=== PATIENT | male | born 1990 | race Caucasian/White ===

== ENCOUNTER 2017-03-04 22:55 | Inpatient (IN) ==
[2017-03-05 00:35] LABS: BASO% 0.1 % (0.0-0.8); EOS# 0.07 X1000 (0.0-0.7); EOS% 0.6 % (0.0-10.0); HEMATOCRIT 44.4 % (42.0-52.0); HEMOGLOBIN 15.3 g/dL (14.0-18.0); IMM GRAN# 0.04 X1000 (0.0-0.04); IMM GRAN% 0.3 % (0.0-0.5); LYMPH# 0.41 X1000 (1.2-3.4); LYMPH% 3.4 % (20.5-51.1); MANUAL DIFF NEEDED? NO; MCH 29.3 PG (27-31); MCHC 34.5 g/dL (33-37); MCV 84.9 FL (81-99); MONO# 0.55 X1000 (0.11-0.59); MONO% 4.6 % (1.7-9.3); MPV 12.1 FL (7.4-10.4); PLT 175 X1000 (130-400); RBC 5.23 XMIL (4.7-6.1)
[2017-03-05 00:46] LABS: URINE MICRO REVIEW NEEDED? NO; URINE SOURCE CLEAN CATCH
[2017-03-05 00:51] LABS: UR EPITHELIAL CELLS <10 /HPF (<10); URINE BACTERIA NEGATIVE /HPF; URINE RBC <10 /HPF (<10)
[2017-03-05 00:55] LABS: AGAP 16; ALBUMIN 4.5 g/dL (3.5-5.0); ALKALINE PHOSPHATASE 90 U/L (32-122); AMYLASE 58 U/L (20-200); BUN 15 mg/dL (8-22); CHLORIDE 99 mmol/L (98-107); COSMO 275; GOT 17 U/L (10-34); GPT 11 U/L (10-44); LIPASE 26 U/L (13-60); POTASSIUM 3.9 mmol/L (3.5-5.1); SODIUM 137 mmol/L (136-145); TCO2 22 mmol/L (25-35); TOTAL PROTEIN 7.3 g/dL (6.3-8.3)
[2017-03-05 01:00] LABS: BILIRUBIN URINE SMALL (NEGATIVE); BLOOD URINE NEGATIVE (NEGATIVE); COLOR YELLOW; GLUCOSE URINE NEGATIVE (NEGATIVE); LEUKOCYTES URINE SMALL (NEGATIVE); NITRITE URINE NEGATIVE (NEGATIVE); PH URINE 5.5; PROTEIN URINE 30 mg/dL (NEGATIVE); SP GRAVITY URINE 1.035; TURBIDITY URINE CLEAR (CLEAR); URINE CULTURE NEEDED? YES; UROBILINOGEN URINE NORMAL (NORMAL)
[2017-03-05] MEDS ORDERED: NS 2,000 ML IV ONE (01:06)
[2017-03-05] MEDS ORDERED: DILAUDID IV ONE (01:07)
[2017-03-05] MEDS ORDERED: ZOFRAN IV ONE (01:08)
--- NOTE | 2017-03-05 01:19 | PROVIDER DOCUMENTATION ---
This chart was entered by Marc Short Scribe, acting as scribe for Navdeep Clements MD. HPI-Abdominal Pain/GI Problem - General Chief Complaint: Abdominal Pain Stated Complaint: ABD PAIN, N/V/D Time Seen by Provider: 03/05/17 01:05 Source: patient Allergies/Adverse Reactions: Patient Allergies Allergy/AdvReac Type Severity Reaction Status Date / Time No Known Allergies Allergy Verified 03/05/17 00:38 Home Medications: Home Medication List Medication Instructions Recorded Confirmed Last Taken Type NK [No Home Medications] 03/05/17 03/05/17 Unknown History - History of Present Illness-ABD Nature of Presenting Problems: Pt is a 26 yowm who presents to ER with CC of RLQ pain with N/V/D. Pt reports that his pain started between [id number]. Pt states that he fell asleep and woke up at 1800 with sudden onset of vomiting and diarrhea. Pt reports that during this episode, he had to shower himself off due to feces falling on his lower extremities. Pt denies any hx of appendectomy and denies any illicit drug use. Pt also reports chills. 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 Abdominal Pain Onset Location: reports: RLQ Pain Radiation: reports: no radiation Quality of Pain: reports: aching, cramping Severity in ED: reports: moderate, severe Onset/Duration: reports: this evening (1500) Timing: reports: still present Associated Symptoms: reports: diarrhea, fever/chills (chills without fever), loss of appetite, nausea, vomiting, weakness. denies: chest pain, constipation , cough, diaphoresis, genitourinary problems, headaches, heartburn, muscle aches , shortness of breath, trouble walking Last BM: this evening Dark Stools Present?: reports: none noticed Rectal Bleeding: reports: none Rectal Pain: reports: none Emesis Description: reports: other (gastric juices) Review of Systems - Adult - REVIEW OF SYSTEMS - ADULT Constitutional: reports: chills, fatique. denies: fever, night sweats, weight gain, weight loss Eyes: reports: no symptoms reported Ears, Nose, Mouth & Throat: reports: no symptoms reported Cardiovascular: reports: no symptoms reported Respiratory: reports: no symptoms reported Gastrointestinal: reports: abdominal pain, diarrhea, nausea, poor appetite, vomiting. denies: hematemesis, constipation, difficulty swallowing, frequent heartburn, rectal bleeding Genitourinary: reports: no symptoms reported Musculoskeletal: reports: no symptoms reported Integumentary: reports: no symptoms reported Neurological: reports: no symptoms reported Psychiatric: reports: no symptoms reported Endocrine: reports: no symptoms reported Hematologic/Lymphatic: reports: no symptoms reported Allergic/Immunologic: reports: no symptoms reported All Other Systems: Reviewed and Negative Past History - Adult - PAST MEDICAL HISTORY-ADULT Review of Records: reports: Nursing Assessment Review, Medications Reviewed - IMMUNIZATION STATUS Childhood Immunizations: See Nurse Assessment Flu Vaccine: See Nurse Assessment Physical Exam-General - PHYSICAL EXAM-ADULT Initial Vital Signs Reviewed: Yes - CONSTITUTIONAL General Appearance: appears well, alert, mild distress, other (ill-appearance/ drowsy) - EYES Eyes: PERRL/EOMI, pink conjunctivae - RESPIRATORY Respiratory: chest non-tender, lungs clear, normal breath sounds, no pleuratic chest pain, no respiratory distress, no accessory muscle use. negative: respiratory distress, decreased breath sounds, accessory muscle use, wheezing - CARDIOVASCULAR Cardiovascular: normal peripheral pulses, regular rate, rhythm. negative: bradycardia, tachycardia, irregularly irregular - GASTROINTESTINAL (ABDOMEN) Abdominal Exam: normal bowel sounds, soft, no organomegaly, no pulsatile mass, tenderness (RLQ). negative: non tender, guarding, rebound, McBurney's point tenderness - MUSCULOSKELETAL Extremity: normal range of motion, non-tender, normal gait, normal inspection, no pedal edema, no calf tenderness, normal capillary refill, pelvis stable. negative: deformity, erythema, swelling, tenderness - SKIN Integumentary: normal color, normal turgor, warm/dry. negative: abrasion(s), diaphoresis, ecchymosis, erythema - PSYCHIATRIC Psych/Mental Status: normal thought content, normal thought process, oriented x 3, depressed affect. negative: normal mood/affect Progress - PLAN OF CARE/RESULTS Progress/Plan/Lab Results: Vital Signs - 8 hr 03/04/17 23:18 Temperature 99.2 F Pulse Rate 108 H Respiratory Rate 20 Blood Pressure 113/57 O2 Sat by Pulse Oximetry 98 Laboratory Results - last 24 hr 03/05/17 03/05/17 03/05/17 00:05 00:05 00:40 WBC 11.94 H RBC 5.23 Hgb 15.3 Hct 44.4 MCV 84.9 MCH 29.3 MCHC 34.5 RDW Std Deviation 12.6 Plt Count 175 MPV 12.1 H Immature Gran % (Auto) 0.3 Neut % (Auto) 91.0 H Lymph % (Auto) 3.4 L [place] % (Auto) 4.6 Eos % (Auto) 0.6 Baso % (Auto) 0.1 Immature Gran # (Auto) 0.04 Neut # (Auto) 10.86 H Lymph # (Auto) 0.41 L [place] # (Auto) 0.55 Eos # (Auto) 0.07 Baso # (Auto) 0.01 Sodium 137 Potassium 3.9 Chloride 99 Carbon Dioxide 22 L Anion Gap 16 BUN 15 Creatinine 0.8 Estimated GFR/1.73 m2 > 60 BUN/Creatinine Ratio 19 Glucose 109 H Calculated Osmolality 275 Calcium 9.0 Total Bilirubin 0.70 AST 17 ALT 11 Alkaline Phosphatase 90 Total Protein 7.3 Albumin 4.5 Globulin 2.8 Albumin/Globulin Ratio 1.6 Amylase 58 Lipase 26 Urine Source CLEAN CATCH Urine Color YELLOW Urine Turbidity CLEAR Urine pH 5.5 Ur Specific [place] 1.035 Urine Protein 30 A Ur Glucose (Stick) NEGATIVE Ur Ketones (Stick) 100 A Urine Blood NEGATIVE Urine Nitrite NEGATIVE Urine Bilirubin SMALL A Urobilinogen Dipstick NORMAL Urine Leukocytes SMALL A Urine WBC (Auto) 10-20 A Urine RBC (Auto) <10 U Epithel Cells (Auto) <10 Urine Bacteria (Auto) NEGATIVE Orders Category Date Time Status Saline Loc DIRECTED Care 03/04/17 23:21 Active NPO Diet 03/04/17 23:21 Active AMYLASE [CHEM] Stat Lab 03/05/17 00:05 Completed CBC WITH ELECTRONIC DIFF [HEME] Stat Lab 03/05/17 00:05 Completed COMPREHENSIVE METABOLIC PANEL [CHEM] Stat Lab 03/05/17 00:05 Completed LIPASE [CHEM] Stat Lab 03/05/17 00:05 Completed URINALYSIS W/POSS RFLX CULT-1 [URINALYSIS] Stat Lab 03/05/17 00:40 Completed Result Diagrams: 03/05/17 00:05 03/05/17 00:05 - CT/MRI 1 CT Study: Abdomen Impression: See EMR Report (Structure possibly representing appendix appears normal. No RLQ inflammatory changes. There is mildly increased fluid levels in the bowel without obstruction. This is nonspecific. There is nonobstructive right nephrolithiasis - Dr. Doran (Radiologist)) CT Results: See report - CONSULTS/PCP/HOSPITALIST Notification #1 *Consult/PCP/Hospitalist*: Dr. Ruano (Hospitalist) Time Discussed: 02:33 Consult Disposition: Admit Departure - Departure Date of Disposition Decision: 03/05/17 Time of Disposition Decision: 02:35 DIAGNOSIS: RLQ abdominal pain, Dehydration UTI (urinary tract infection) Qualifiers: Urinary tract infection type: site unspecified Hematuria presence: with hematuria Qualified Code(s): N39.0 - Urinary tract infection, site not specified Disposition: ADMITTED INPATIENT 09 Certified Medical Emergency: Emergent Condition: Stable Referrals and Follow-Ups: None,PCP [Primary Care Provider] - - Critical Care Note This patient required my direct & personal management of CC.: No Attestation - Physician/ ANTHONY Attestation Patient care was provided by Advanced Practice Provider:: No The physician spent face to face time with patient:: Yes Advanced Practice Provider documentation review:: Supervising physician onsite and consulted in the evaluation and care of this patient. The physician did have a face to face encounter with the patient. This chart was documented by the indicated scribe, (Marc Short Scribe) and accurately reflects the services I performed and decisions made by me, Navdeep Clements MD, as attested by the provider's signature.
[2017-03-05] MEDS ORDERED: DILAUDID ONE (01:22)
[2017-03-05] MEDS ORDERED: ROCEPHIN 1 GM in NS 50 ML IV ONE (02:34)
--- NOTE | 2017-03-05 06:37 | HISTORY AND PHYSICAL ---
PRIMARY CARE PHYSICIAN: None. CHIEF COMPLAINT: Abdominal pain, vomiting, diarrhea. HISTORY OF PRESENT ILLNESS: Mr. Guzman is a healthy, 26-year-old male with no significant past medical history that comes to the hospital complaining of right lower quadrant pain. The patient was given, in the ER, Dilaudid and patient is barely awake. History is being obtained by his fiancee. According to the fiancee, around 9 p.m. on the day prior to admission, the patient started vomiting x3 and diarrhea x3. Complaining of sharp, nonradiating right lower quadrant pain. After vomiting, the patient tried 1 dose of Phenergan which did not help his symptoms. The patient decided to come to the emergency room then. In the emergency room, the patient was given 1 mg of Dilaudid, 2 L normal saline, ceftriaxone, and Zofran. REVIEW OF SYSTEMS: Reviewed and is negative except as stated above. PAST MEDICAL HISTORY: None. 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 ALLERGIES: None. MEDICATIONS: None. SOCIAL HISTORY: The patient admits to being a smoker. He denies drinking or using illicit drugs. FAMILY HISTORY: Patient states that he does not know anything about his biological family. PHYSICAL EXAMINATION: VITAL SIGNS: Temperature 99.2 degrees, pulse 108, respirations 20, blood pressure 113/57, oxygen saturation 98% on room air. GENERAL: The patient is very somnolent. Alert and oriented x3. No acute distress. HEENT: Head is normocephalic, atraumatic. Eyes, ANTHONY. Dry mucous membranes. Neck is supple. No JVD. PULMONARY: Well ventilated bilaterally. No wheezing, rales, or crackles. CARDIOVASCULAR: S1, S2. No rubs, murmurs, or gallops. ABDOMEN: Soft, nondistended, tender to palpation in both lower quadrants, especially in the right lower quadrant. The patient states that he does have some rebound tenderness on physical exam. EXTREMITIES: No lower extremity edema. NEUROLOGIC: Cranial nerves 2-12 grossly intact. LABORATORY DATA: White blood cell count 12, hemoglobin 15, hematocrit 44, platelets 175,000. Sodium 137, potassium 3.9, BUN 16, creatinine 0.8. LFTs within normal limits. Amylase and lipase within normal limits. Urinalysis negative for UTI. Specific gravity 1.035. IMAGING: A CT of the abdomen and pelvis, preliminary read states that a structure possibly representing the appendix appears normal but appendicitis cannot be ruled out. ASSESSMENT AND PLAN: 1. Right lower quadrant pain. It is possible that patient may have appendicitis. It cannot be ruled out by CT scan. In the emergency room, he already received 1 g of Rocephin. He will be also started on metronidazole 500 mg three times a day and continue Rocephin every 24 hours. A CBC will be ordered in the morning to follow white blood cell count and we will get a surgery consult to evaluate the patient. 2. Pain control. The patient is very somnolent. In the meantime, we will not give any pain medications so that the patient can actually feel the pain, and be awake and able to communicate if he has any pain. Once he is more awake, we will continue pain management. 3. Dehydration. Specific gravity 1.035. We will give intravenous fluids and Chem 8 will be checked in the morning. cc: Melissa Ruano MD
[2017-03-05] MEDS ORDERED: NS 1,000 ML IV ONE (07:22)
--- NOTE | 2017-03-05 08:34 | Diag Imaging Result Doc PS360 ---
EXAM: CT ABD/PELVIS W/ IV CONT ONLY - 03/05/2017 HISTORY: RLQ abdomen pain TECHNIQUE: With intravenous contrast per request the referring provider. Dose reduction protocol. COMPARISON: None. FINDINGS: The visualized lung bases are clear. There are no substantial analysis of the liver, spleen, adrenal glands, or pancreas identified. There are no calcified gallstones or pericholecystic inflammation identified. The bilateral kidneys enhance homogeneously. There are two small nonobstructing stones in the right kidney. There is no hydronephrosis. There is no evidence of bowel obstruction. There are some retained fluid and small bowel and right colon. The possibility of mild enteritis cannot be excluded, although there is no substantial small bowel wall thickening identified. The appendix is not discretely visualized, but there is no pericecal inflammation identified. There are slightly prominent lymph nodes at the right lower quadrant which are nonspecific but can be seen with mesenteric adenitis. There is no free air, substantial free fluid, or abscess identified. IMPRESSION: Possible mild enteritis and mild mesenteric adenitis. No evidence of bowel obstruction. The appendix is not discretely visualized. There is no evidence of pericecal inflammation, however. No abscess. No free air. Nonobstructing stones in right kidney. No hydronephrosis. The concrete sculptor radiologist provided preliminary results at 2:08 AM on 03/05/2017. Electronically signed by Trevin Walters 03/05/2017 8:31 AM
[2017-03-05] MEDS: FLAGYL 500 MG/NS 500 MG/100 ML IVPB IV SCH ×3 (08:44→21:57)
[2017-03-05] MEDS: LOVENOX SUBQ SCH (08:44)
--- NOTE | 2017-03-05 20:06 | CONSULTATION ---
DATE OF CONSULTATION: 03/05/2017 CHIEF COMPLAINT: Abdominal discomfort, nausea, vomiting and diarrhea. HISTORY: This is a 26-year-old who, after eating spaghetti last night, began feeling ill with nausea and vomiting, followed subsequently with discomfort and diarrhea. He sought medical attention during the night. Denies any similar previous illness. He does admit to feeling somewhat better today. PAST MEDICAL HISTORY: Unremarkable. He has had a cleft palate reconstruction as a child. MEDICATIONS: He takes no scheduled medications. ALLERGIES: Has no known drug allergies. SOCIAL HISTORY: He does smoke. Denies alcohol or drug use. FAMILY HISTORY: Is unremarkable. REVIEW OF SYSTEMS: As noted above. PHYSICAL EXAM: Vital Signs: Afebrile. Heart rate 58, respiratory rate 14. Blood pressure 98/42. Neck: No cervical adenopathy. Lungs: Bilateral breath sounds. Heart: Regular rate and rhythm. Abdomen: Soft. Bowel sounds are normal. Some mild tenderness in the lower abdomen. Psoas sign is negative. Neurologic: He is awake and alert. Extremities: Pedal pulses are present. DIAGNOSTIC STUDIES: White count 11,900. A CT scan was not suggestive of acute appendicitis, but rather possibly some mesenteric adenitis or colitis. ASSESSMENT: I doubt this is acute appendicitis. We will do serial abdominal examinations. We will repeat a CBC in the morning. Thanks for the opportunity to see him. cc: Arturo Santoro MD
[2017-03-06] MEDS ORDERED: ROCEPHIN 1 GM in NS 50 ML IV SCH (03:00)
[2017-03-06] MEDS: FLAGYL 500 MG/NS 500 MG/100 ML IVPB IV SCH (05:19)
[2017-03-06 05:46] LABS: HEMOGLOBIN 13.1 g/dL (14.0-18.0); MCH 29.8 PG (27-31); MCHC 33.6 g/dL (33-37); MCV 88.6 FL (81-99); RBC 4.4 XMIL (4.7-6.1)
[2017-03-06 06:04] LABS: AGAP 11; BUN 8 mg/dL (8-22); CALCIUM 8.2 mg/dL (8.8-10.2); CHLORIDE 104 mmol/L (98-107); COSMO 275; POTASSIUM 4.1 mmol/L (3.5-5.1); SODIUM 139 mmol/L (136-145); TCO2 24 mmol/L (25-35)
[2017-03-06 08:20] VITALS: BP 111/60
[2017-03-06] MEDS: LOVENOX SUBQ SCH (09:38)
--- NOTE | 2017-03-07 07:19 | DISCHARGE SUMMARY ---
ADMISSION DATE: 03/05/2017 DISCHARGE DATE: 03/06/2017 CONSULTATION: Dr. Arturo Santoro with General Surgery. PERTINENT PROCEDURES: Abdomen and pelvis CT showed possible mild enteritis and mild mesentery adenitis. No evidence of bowel obstruction. The appendix was not discretely visualized. No evidence of pericecal inflammation however. No abscess. No free air. Nonobstructing stones in the right kidney. No hydronephrosis. DISCHARGE DIAGNOSES: 1. Right lower quadrant pain, ruled out acute appendicitis. 2. Gastroenteritis with abdominal discomfort, nausea, vomiting, and diarrhea resolved. 3. Dehydration, resolved. HOSPITAL COURSE: Mr. Guzman is a healthy 26-year-old male with no significant past medical history, who came to the ED with complaints of right lower quadrant pain. The patient around 09:00 in the evening had had 3 episodes of vomiting and 3 episodes of diarrhea complaining of sharp nonradiating right lower quadrant pain. He tried Phenergan which did not relieve his symptoms and decided to come to the ED. Prior to his vomiting and diarrhea episodes, he had eaten spaghetti and began feeling ill. He underwent a abdomen and pelvis CT that showed possible mild enteritis, mild mesentery adenitis. No bowel obstruction. Appendicitis could not discretely be visualized. No abscess. No free air. He was given Dilaudid with 2 L of normal saline, started on ceftriaxone and Zofran. At the time of his interview, the patient was barely wakable, and most of the history had to be obtained from the fiancee who was at the bedside. On admission, his white count was 11. He had a temperature of 99 degrees. After hydration, his white count was 5. Dr. Santoro reviewed the imaging. He felt like the patient did not have an acute appendicitis. He has been afebrile since admission. He has had no more episodes of vomiting or diarrhea and is feeling better. He is appropriate for discharge home today. VITAL SIGNS: Temperature is 98.3 degrees, heart rate 71, respirations 16, blood pressure 111/60, O2 is 100% on room air. DISCHARGE DIET: Clear liquids. Advance as tolerated. DISCHARGE MEDICATIONS: As per Dr. [place]: 1. Levaquin 500 mg p.o. daily for 7 days. 2. Flagyl 500 mg p.o. t.i.d. for 7 days. FOLLOWUP: Mr. Guzman was discharged home with self care. He is to follow up with a primary care physician of his choice in 1-2 weeks. He can return to the ED for any worsening of symptoms. Dictated by RACHEL Ma for Juan David Gallegos MD Patient seen and examined. Agree with RACHEL note. It reflects my assessment and plan. cc: Juan David Gallegos MD [facility]
== END 2017-03-06 12:18 | disposition home or self-care (01) ==
LOC: ED 22:55 → SUATTDRO 03-05 06:06 → 4N 03-05 06:06
PROVIDERS: ATTEND Internal Medicine